=== PATIENT | male | born 1990 | race Caucasian/White ===

== ENCOUNTER 2016-11-23 10:39 | Emergency (ER) | payer OTHER ==
[2016-11-23] MEDS ORDERED: Bacitracin/Neomycin/Polymyxin B Oint 0.9 GM U/D Packet TOP ONE (11:23)
--- NOTE | 2016-11-23 11:42 | EDM.PDOC ---
ED HPI GENERAL MEDICAL PROBLEM - General Chief Complaint: Laceration Stated Complaint: laceration Time Seen by Provider: 11/23/16 10:40 Source of Information: Reports: Patient History Limitations: Reports: No Limitations - History of Present Illness INITIAL COMMENTS - FREE TEXT/NARRATIVE: Is a 26-year-old was seen in the emergency room with a laceration in the right forearm states that he was tightening a ratchet strap when the rash strap broke and got cut with the metal piece of the ratchet strap patient put a pressure dressing and came in he denies any other complaints laceration is very] Onset: Today, Sudden Onset Date: 11/23/16 Onset Time: 09:30 Duration: Hour(s): (1 hour ago) Location: Reports: Upper Extremity, Left Quality: Reports: Throbbing Severity: Moderate Improves with: Reports: None Worsens with: Reports: None Context: Reports: Trauma Associated Symptoms: Reports: No Other Symptoms - Related Data Allergies Allergy/AdvReac Type Severity Reaction Status Date / Time No Known Allergies Allergy Verified 04/12/14 01:53 Home Meds: Home Meds Cephalexin [Keflex] 500 mg PO Q6H #40 capsule 11/23/16 [Rx] Social & Family History - Tobacco Use Smoking Status *Q: Current Every Day Smoker Years of Tobacco use: 4 (Additional chewing tobacco) Second Hand Smoke Exposure: Yes - Alcohol Use Days Per Week of Alcohol Use: 1 (2012) Number of Drinks Per Day: 4 (Usually Beer) Total Drinks Per Week: 4 - Recreational Drug Use Recreational Drug Use: No Recreational Drug Type: Reports: Marijuana/Hashish (Experimentation) - Living Situation & Occupation Living situation: Reports: Single, with Family Occupation: Employed ED ROS GENERAL - Review of Systems Review Of Systems: See Below Constitutional: Reports: No Symptoms HEENT: Reports: No Symptoms Respiratory: Reports: No Symptoms Cardiovascular: Reports: No Symptoms Endocrine: Reports: No Symptoms GI/Abdominal: Reports: No Symptoms : Reports: No Symptoms Musculoskeletal: Reports: No Symptoms, Other Skin: Reports: No Symptoms, Other Neurological: Reports: No Symptoms Psychiatric: Reports: No Symptoms Hematologic/Lymphatic: Reports: No Symptoms Immunologic: Reports: No Symptoms ED EXAM, SKIN/RASH Exam: See Below Exam Limited By: No Limitations General Appearance: Alert, WD/WN, No Apparent Distress Ears: Normal External Exam, Normal Canal, Hearing Grossly Normal, Normal TMs Nose: Normal Inspection, Normal Mucosa, No Blood Throat/Mouth: Normal Inspection, Normal Lips, Normal Teeth, Normal Gums, Normal Oropharynx, Normal Voice, No Airway Compromise Head: Atraumatic, Normocephalic Neck: Normal Inspection, Supple, Non-Tender, Full Range of Motion Respiratory/Chest: No Respiratory Distress, Lungs Clear, Normal Breath Sounds, No Accessory Muscle Use, Chest Non-Tender Cardiovascular: Normal Peripheral Pulses, Regular Rate, Rhythm, No Edema, No Gallop, No JVD, No Murmur, No Rub GI/Abdominal: Normal Bowel Sounds, Soft, Non-Tender, No Organomegaly, No Distention, No Abnormal Bruit, No Mass (Male) Exam: No Hernia, Normal Inspection, Normal Prostate, Circumcised Rectal (Males) Exam: Normal Exam, Normal Rectal Tone, Prostate Normal Back Exam: Normal Inspection, Full Range of Motion, NT Extremities: Other (Laceration of right forearm approximately 8 cm) Neurological: Alert, Oriented, CN II-XII Intact, Normal Cognition, Normal Gait, Normal Reflexes, No Motor/Sensory Deficits Psychiatric: Normal Affect, Normal Mood Skin: Wound/Incision (Laceration right arm 8 cm) Lymphatic: No Adenopathy ED SKIN PROCEDURES - Laceration/Wound Repair Right Upper Distal Arm Lac/Wound length In cm: 8 Appearance: Superficial, Subcutaneous, Muscle, Irregular, Clean Distal NVT: Neuro & Vascular Intact, No Tendon Injury Anesthetic Type: Topical Local Anesthesia - Lidocaine (Xylocaine): 1% Plain Local Anesthetic Volume: Other (10 mL) Skin Prep: Chlorhexidine (Hibiciens), Providone-Iodine (Betadine) Exploration/Debridement/Repair: in a Bloodless Field, Minimal Debridement, Minimally Undermined Closed with: Sutures Suture Size: 4-0 (4-0 nylon was used for skin) # of Sutures: 21 (The wound was closed in layers first the fascia was closed using 3-0 Vicryl 6 sutures were used then the subcutaneous was closed with 30 3 interrupted sutures skin closed with 4-0 nylon 12 interrupted sutures) Course - Vital Signs Last Recorded V/S: Last Vital Signs Temp 98.8 F 11/23/16 10:49 Pulse 82 11/23/16 10:49 Resp 20 11/23/16 10:49 BP 158/70 H 11/23/16 10:49 Pulse Ox 100 11/23/16 10:49 - Orders/Labs/Meds Meds: Medications Discontinued Medications Generic Name Dose Route Start Last Admin Trade Name Evelyn PRN Reason Stop Dose Admin Lidocaine HCl 5 ml 11/23/16 10:52 11/23/16 11:05 Xylocaine-Mpf 1% INJECT 11/23/16 10:53 5 ml ONETIME ONE Administration Lidocaine HCl 5 ml 11/23/16 10:53 11/23/16 11:05 Xylocaine-Mpf 1% INJECT 11/23/16 10:54 5 ml ONETIME ONE Administration Lidocaine HCl 5 ml 11/23/16 10:53 11/23/16 11:06 Xylocaine-Mpf 1% INJECT 11/23/16 10:54 5 ml ONETIME ONE Administration Lidocaine HCl 5 ml 11/23/16 10:54 11/23/16 11:06 Xylocaine-Mpf 1% INJECT 11/23/16 10:55 5 ml ONETIME ONE Administration Neomycin/Polymyxin/Bacitracin 2 each 11/23/16 11:23 11/23/16 11:26 Triple Antibiotic Oint TOP 11/23/16 11:24 2 each ONETIME ONE Administration Departure - Departure Time of Disposition: 11:55 Disposition: Home, Self-Care 01 Condition: good Clinical Impression: Disruption of closure of traumatic laceration - Discharge Information Prescriptions: Cephalexin [Keflex] 500 mg PO Q6H #40 capsule Instructions: Laceration Care, Adult, [id number], Stitches, Franklin, or Adhesive Wound Closure, [id number] Forms: ED Department Discharge - Problem List Review Problem List Initiated/Reviewed/Updated: Yes - Assessment/Plan Assessment:: Laceration right arm 8 cm full-thickness with laceration of fascia muscle. Intact Plan: Wound closed in layers under local anesthesia Patient's) a Motbrigido and Sharri also will see in 3 days for changing the bandage
[2016-11-23 16:12] VITALS: BP 148/62
== END 2016-11-23 12:15 | disposition home or self-care (01) ==
LOC: LL.ED 10:39
DX: S51.811A Laceration without foreign body of right forearm, initial encounter (principal); F17.210 Nicotine dependence, cigarettes, uncomplicated; W45.8XXA Other foreign body or object entering through skin, initial encounter
CPT/HCPCS: 12004; 12034; 99283

== ENCOUNTER 2018-10-06 00:53 | Emergency (ER) | payer OTHER ==
--- NOTE | 2018-10-06 01:12 | EDM.PDOC ---
ED HPI GENERAL MEDICAL PROBLEM - General Chief Complaint: General Stated Complaint: finger injury Time Seen by Provider: 10/06/18 01:05 Source of Information: Reports: Patient, Old Records ([facility] chart/EMR) History Limitations: Reports: No Limitations - History of Present Illness INITIAL COMMENTS - FREE TEXT/NARRATIVE: The patient was brought to the emergency room via transport vehicle from [facility] for evaluation of a Workmen's Compensation injury, which occurred at about 00: 30 hours this evening. Note the patient accidentally caught his right hand under a "Stamper" with 3/10 pain at this time. Small laceration on his fifth finger also occurred, which was rinsed with tapwater and dressing placed prior to arrival. No other medications prior to arrival. He is right-handed. He has had laceration to this digit in the past but no other previous fractures, etc.. He denies any paresthesias, neurological deficits, or other complaints or injuries. He did receive a DTaP in this facility on 04/12/14. No history of foreign body, etc.. No recent history of abdominal pain, heartburn, nausea, diarrhea, melena, gross hematochezia, or any food intolerance, including fatty foods, etc.. The patient also denies any recent fever, cough, wheezing, dyspnea , etc.. Onset: Today, Sudden Onset Date: 10/06/18 Onset Time: 00:30 Duration: Constant Location: Reports: Upper Extremity, Right. Denies: Head, Face, Neck, Chest, Abdomen, Back, Pelvis, Upper Extremity, Left, Radiates to Quality: Reports: Same as Previous Episode, Throbbing Improves with: Reports: Rest Worsens with: Reports: Movement Context: Reports: Trauma (As above) Associated Symptoms: Reports: No Other Symptoms. 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 [No Known Home Meds] 10/06/18 [History] Past Medical History - Past Health History Medical/Surgical History: Denies Medical/Surgical History Musculoskeletal History: Reports: None. Denies: Arthritis, Fracture, Osteoarthritis Neurological History: Reports: None. Denies: Concussion, Head Trauma - Infectious Disease History Infectious Disease History: Reports: None. Denies: C-Difficile, MRSA, VRE - Past Surgical History Male Surgical History: Reports: None. Denies: Circumcision Social & Family History - Tobacco Use Smoking Status *Q: Current Every Day Smoker Tobacco Use Within Last Twelve Months: Cigarettes Years of Tobacco use: 13 Packs/Tins Daily: 1 Packs/Tins Daily Comment: Started smoking at age 14 with average use of 11.5 packs per day. Note patient did use chewing tobacco for 12 months as a teenager with maximum use of one pack per month. Used Tobacco, but Quit: No Smoking Cessation Information Provided To Patient: Yes Second Hand Smoke Exposure: No Second Hand Smoke Education Provided: No - Caffeine Use Caffeine Use: Reports: Coffee (16 ounces per day), Energy Drinks (1 can per week ), Soda (1 soda per day). Denies: Tea - Alcohol Use Alcohol Use History: Yes Days Per Week of Alcohol Use: 4 Number of Drinks Per Day: 1 Number of Drinks Per Day Comment: Usually beer. DWI in 2013 with no previous history of alcohol abuse, treatment, etc. Total Drinks Per Week: 4 Alcohol Use in Last Twelve Months: Yes - Recreational Drug Use Recreational Drug Use: Yes Drug Use in Last 12 Months: No Recreational Drug Type: Reports: Marijuana/Hashish (Experimentation briefly as a teenager.). Denies: Amphetamines (Speed), Cocaine, Heroin, Inhalants (Glues, Solvents, Aerosols), LSD (Acid), Methamphetamine, Morphine, Oxycodone - Living Situation & Occupation Living situation: Reports: Single, Alone Occupation: Employed ([employer]. 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 ED EXAM, GENERAL - Physical Exam Exam: See Below Exam Limited By: No Limitations General Appearance: Alert, WD/WN, No Apparent Distress Head: Atraumatic, Normocephalic. No: Facial Swelling, Facial Tenderness, Sinus Tenderness Neck: Normal Inspection, Supple, Non-Tender, Full Range of Motion. No: Lymphadenopathy (L), Lymphadenopathy (R), Thyromegaly Respiratory/Chest: No Respiratory Distress, Lungs Clear, Normal Breath Sounds, No Accessory Muscle Use, Chest Non-Tender Cardiovascular: Normal Peripheral Pulses, Regular Rate, Rhythm, No Edema, No Gallop, No JVD, No Murmur, No Rub. No: Gallop/S3, Gallop/S4, Friction Rub Peripheral Pulses: 2+: Radial (L), Radial (R) GI/Abdominal: Normal Bowel Sounds, Soft, Non-Tender, No Organomegaly, No Distention, No Abnormal Bruit, No Mass, Pelvis Stable. No: Guarding (Male) Exam: Deferred Rectal (Males) Exam: Deferred Back Exam: Normal Inspection, Full Range of Motion. No: Muscle Spasm Extremities: No Pedal Edema, Normal Capillary Refill, Limited Range of Motion ( Secondary to hand swelling), Other (Mild to moderate palpation pain and swelling over the fifth metacarpal of the right hand with no deformity, crepitation, or sign of fracture. Small 0.25 cm laceration over the palmar aspect of the base of the proximal phalanx of digit #5 of the right hand with no evidence of foreign body, significant bleeding, etc.). No: Joint Swelling, Sangita's Sign Neurological: Alert, Oriented, CN II-XII Intact, Normal Cognition, Normal Gait, No Motor/Sensory Deficits Psychiatric: Normal Affect, Normal Mood Skin Exam: Wound/Incision (As above). No: Diaphoretic, Ecchymosis Lymphatic: No Adenopathy Course - Vital Signs Last Recorded V/S: Last Vital Signs Temp 37.1 C 10/06/18 01:12 Pulse 73 10/06/18 01:12 Resp 16 10/06/18 01:12 BP 145/79 H 10/06/18 01:12 Pulse Ox 100 10/06/18 01:12 Vital Signs - 24 hr 10/06/18 01:12 Temperature [ 37.1 C Temporal] Pulse, 73 Peripheral [ Pulse Oximetry] Respiratory 16 Rate Blood Pressure 145/79 H [Left Arm] O2 Sat by Pulse 100 Oximetry - Orders/Labs/Meds Orders: Active Orders 24 hr Category Date Time Status Hand Comp Min 3V Rt [CR] Stat Exams 10/06/18 01:12 Ordered Obtain Past Medical Record [OM.PC] Routine Oth 10/06/18 01:12 Active Labs: None Meds: Medications Discontinued Medications Generic Name Dose Route Start Last Admin Trade Name Evelyn PRN Reason Stop Dose Admin Neomycin/Polymyxin/Bacitracin 1 each 10/06/18 01:32 10/06/18 01:36 Triple Antibiotic Oint TOP 10/06/18 01:33 1 each ONETIME ONE Administration - Radiology Interpretation Free Text/Narrative:: X-rays of the right hand, 3 views, shows no evidence of fracture, dislocation, foreign body, etc. Departure - Departure Time of Disposition: 01:55 Disposition: Home, Self-Care 01 Condition: Good Clinical Impression: Laceration, Tobacco abuse counseling Contusion Qualifiers: Encounter type: initial encounter Contusion area: hand Laterality: right Qualified Code(s): S60.221A - Contusion of right hand, initial encounter - Discharge Information *PRESCRIPTION DRUG MONITORING PROGRAM REVIEWED*: Not Applicable *COPY OF PRESCRIPTION DRUG MONITORING REPORT IN PATIENT COURTNEY: Not Applicable Instructions: Steps to Quit Smoking, [id number], Laceration Care, Adult, Easy -to-Read Forms: ED Department Discharge Additional Instructions: 1. Followup with your regular provider in 5-7 days as directed. Bring these discharge instructions with you to that visit. 2. Tylenol 650 mg by mouth every 4 hours and/or OTC ibuprofen 2-3 tabs by mouth every 6 hours with food as directed./needed. You may stagger these medications for 48-72 hours only, which essentially means that you are receiving a pain medication about every 2 hours. 3. Antibacterial soap wash/soak with subsequent antibacterial dressing such as Neosporin, etc. as directed 2 times per day until the wound or laceration site completely heals. Keep the area clean and dry with activity restrictions as discussed. Never use hydrogen peroxide for wound care. 4. BenGay or equivalent, hand elevation, heating pad, and/or ice packs as directed. 5. Stop all tobacco use LORELEI as directed/per provided information and consider contacting Quit LIne, etc.. 6. Immediately after this visit verify that your cellular telephone's voicemail has been activated and is empty. Also verify that your home telephone 's answering machine is operating properly and has space to receive messages. Note that it is sometimes necessary for us to be able to contact you at a later date to discuss your medical care. 7. Please remember that we are ALWAYS here for you and want to answer any questions you may have. Feel free to call the hospital any time and we call you back LORELEI. - Problem List & Annotations (1) Contusion SNOMED Code(s): 340407839 Code(s): T14.8XXA - OTHER INJURY OF UNSPECIFIED BODY REGION, INITIAL ENCOUNTER Status: Acute Priority: High Onset Date: 10/06/18 Annotation/ Comment:: Moderate contusion of the right hand with no evidence of fracture. Workmen's Compensation and [place] work excuse forms were completed. Activity restrictions, etc. discussed. Follow-up with regular provider as per discharge instructions. Symptomatic relief for now. Qualifiers: Encounter type: initial encounter Contusion area: hand Laterality: right Qualified Code(s): S60.221A - Contusion of right hand, initial encounter (2) Laceration SNOMED Code(s): 395028007 Code(s): ICG0761 - Status: Acute Priority: High Onset Date: 04/01/18 Annotation/Comment:: Superficial laceration not requiring repair as above. DTaP up-to-date and last given on 04/12/14. Wound care instructions provided and discussed. Laceration site was cleansed with chlorhexidine by ER nurse with Neosporin dressing placed (3) Tobacco abuse counseling SNOMED Code(s): 564215396, 375150734, 165573159 Code(s): Z71.6 - TOBACCO ABUSE COUNSELING Status: Chronic Priority: Medium Annotation/Comment:: Tobacco cessation once again strongly encouraged with patient already having information at home by his history. - Problem List Review Problem List Initiated/Reviewed/Updated: Yes - My Orders Last 24 Hours: My Active Orders 10/06/18 01:12 Hand Comp Min 3V Rt [CR] Stat Obtain Past Medical Record [OM.PC] Routine - Assessment/Plan Last 24 Hours: My Active Orders 10/06/18 01:12 Hand Comp Min 3V Rt [CR] Stat Obtain Past Medical Record [OM.PC] Routine Assessment:: As above Plan: As above. Extensive precautions were given to the patient, who is in agreement with the treatment plan. See Patient Instructions for further treatment and plan.
[2018-10-06 01:14] VITALS: BP 145/79
[2018-10-06] MEDS ORDERED: Bacitracin/Neomycin/Polymyxin B Oint 0.9 GM U/D Packet TOP ONE (01:32)
== END 2018-10-06 01:55 | disposition home or self-care (01) ==
LOC: LL.ED 00:53
DX: S61.411A Laceration without foreign body of right hand, initial encounter (principal); F17.210 Nicotine dependence, cigarettes, uncomplicated; W27.8XXA Contact with other nonpowered hand tool, initial encounter
CPT/HCPCS: 73130-RT; 99283-25

== ENCOUNTER 2021-11-30 05:04 | Emergency (ER) | payer BC ==
[2021-11-30 05:10] VITALS: BP 141/91; PULSE 62
[2021-11-30] MEDS ORDERED: Ketorolac 30 MG/ML SDV IVPUSH ONE (05:28)
[2021-11-30] MEDS: Sodium Chloride 0.9% 10 ML Syringe FLUSH PRN ×2 (05:44→07:51)
[2021-11-30 05:59] LABS: ANION GAP 13.5 meq/L (7-15)
[2021-11-30] MEDS ORDERED: cefTRIAXone 2 GM in Sodium Chloride 0.9% 100 ML IV SCH (06:45)
== END 2021-11-30 08:22 | disposition home or self-care (01) ==
LOC: LL.ED 05:04
DX: K04.7 Periapical abscess without sinus (principal); K02.9 Dental caries, unspecified; K04.01 Reversible pulpitis; F17.210 Nicotine dependence, cigarettes, uncomplicated
CPT/HCPCS: 70486; 80053; 83605; 85025; 96365; 96367; 96375; 99284; 99284-25; J0696; J1885; J3370; J3490; J7050